=== PATIENT | male | born 1985 | race Caucasian/White ===

== ENCOUNTER → 2018-07-18 | Outpatient (CLI) | payer BC | LOC: M WUC 15:48 | DX: M25.562 Pain in left knee (principal) | CPT/HCPCS: 73564 ==

== ENCOUNTER → 2019-04-25 | Outpatient (CLI) | payer BC ==
--- NOTE | 2019-04-25 17:12 | REP ---
BILATERAL INGUINAL ULTRASOUND: Real-time sonographic evaluation of inguinal regions were performed at rest and with Valsalva maneuver. No inguinal hernia is seen bilaterally. No cystic or solid nodule is seen. Reportedly there is an area of bruising in the right inguinal region. There is no underlying sonographic abnormality. IMPRESSION: Negative bilateral inguinal ultrasound. Electronically Signed by Sawyer Burch MD 04/26/2019 04:15 P
== END ==
LOC: M RAD 13:57
PROVIDERS: ATTEND Physician Assistant
DX: S39.013A Strain of muscle, fascia and tendon of pelvis, initial encounter (principal); X58.XXXA Exposure to other specified factors, initial encounter; Y92.9 Unspecified place or not applicable

== ENCOUNTER → 2019-11-06 | Outpatient (CLI) | payer OTHER ==
--- NOTE | 2019-11-07 01:50 | REP ---
Clinical: Left knee pain. Technique: AP, lateral, bilateral oblique and sunrise views of the left knee. Findings: Minimal age-related changes are appreciated including subtle increase sclerosis to the tibial plateau and posterior patellar margin with a very subtle spurring along the posterior patella and medial tibial spine. No acute fracture dislocation. Subtle suprapatellar effusion cannot be excluded. Impression: Mild age-related changes. Electronically Signed by David Daigle MD 11/07/2019 01:42 A
== END ==
LOC: M WUC 11:28
PROVIDERS: ATTEND Nurse Practitioner Family
DX: M25.562 Pain in left knee (principal)

== ENCOUNTER 2019-12-09 02:56 | Emergency (ER) | payer OTHER ==
[~2019-12-09] VITALS: Ht 180.3 cm; Wt 109.9 kg
[2019-12-09 02:56] VITALS: BP 165/77
[2019-12-09] MEDS ORDERED: DIVA500T9 (03:02)
[2019-12-09] MEDS ORDERED: INDOMETHACIN 25 MG CAP PO ONE (04:30)
[2019-12-09] MEDS ORDERED: COLCHICINE 0.6 MG TAB PO ONE (04:30)
[2019-12-09] MEDS ORDERED: COLC1TAB14 PO (04:31)
[2019-12-09] MEDS ORDERED: INDO50CA91 PO (04:31)
== END 2019-12-09 04:50 | disposition home or self-care (01) ==
LOC: M ED 02:56
DX: M10.9 Gout, unspecified (principal); G40.909 Epilepsy, unspecified, not intractable, without status epilepticus; Z79.899 Other long term (current) drug therapy

== ENCOUNTER → 2022-12-28 | Outpatient (CLI) | payer OTHER ==
[~2022-12-28] MED LIST: COLC1TAB14 PO; DIVA500T9; INDO50CA91 PO
== END ==
LOC: M WUC 09:13
PROVIDERS: ATTEND Student in an Organized Health Care Education/Training Program
DX: M25.572 Pain in left ankle and joints of left foot (principal)

== ENCOUNTER → 2023-11-16 | Outpatient (CLI) | payer OTHER | LOC: M WUC 08:24 | PROVIDERS: ATTEND Student in an Organized Health Care Education/Training Program | DX: M25.522 Pain in left elbow (principal); M25.422 Effusion, left elbow ==

== ENCOUNTER → 2024-01-03 | Outpatient (REF) | payer OTHER ==
[2024-01-03 10:55] LABS: BASO % 0.3 % (0.0-1.0); EOS # 0.1 10^3/uL (0.0-0.5); EOS % 0.8 % (0.0-3.0); HEMATOCRIT 45.3 % (42.0-52.0); HEMOGLOBIN 15.2 g/dl (13.5-17.5); LYMPH # 4.9 10^3/uL (1.5-5.0); MEAN CORPUSCULAR HEMOGLOBIN 30.8 pg (27.0-33.0); MEAN CORPUSCULAR HGB CONC 33.6 g/dl (32.0-36.5); MEAN CORPUSCULAR VOLUME 91.9 fl (80.0-96.0); MONO # 0.9 10^3/uL (0.0-0.8); MONO % 8.6 % (2.0-8.0); NEUTROPHILS # 4.7 10^3/uL (1.5-8.5); NEUTROPHILS % 43.6 % (36.0-66.0); PLATELET COUNT, AUTOMATED 345 10^3/uL (150-450); RED BLOOD COUNT 4.93 10^6/uL (4.30-6.10); WHITE BLOOD COUNT 10.8 10^3/uL (4.0-10.0)
== END ==
LOC: M LABWUC 10:12 → M LAB REF 10:12
PROVIDERS: ATTEND Nurse Practitioner Family
DX: M79.671 Pain in right foot (principal)